=== PATIENT | female | born 1990 | race Two or more races ===

== ENCOUNTER 2017-01-02 18:39 | Inpatient (IN) | payer OTHER ==
[~2017-01-02] VITALS: Ht 162.6 cm; Wt 78.0 kg
[~2017-01-02 18:39] MED LIST: DOCU-27 PO; Hydrocodone Bit/Acetaminophen PO; PNV1TABL4 PO
[2017-01-02] MEDS ORDERED: OXYTOCIN 30 UNIT/500 ML PREMIX 500 ML IV PRN (18:45)
[2017-01-02] MEDS ORDERED: LIDOCAINE 1% PF 30 ML VIAL. INJ PRN (18:45)
[2017-01-02] MEDS ORDERED: BUTORPHANOL 2 MG/ML VIAL. IV PRN (18:45)
[2017-01-02] MEDS ORDERED: TERBUTALINE 1 MG/ML VIAL. SQ PRN (18:45)
[2017-01-02] MEDS ORDERED: fentaNYL PF VIAL 100 MCG/2 ML VIAL IV PRN (18:45)
[2017-01-02] MEDS ORDERED: 0.9 % SODIUM CHLORIDE 10 ML DISP.SYRIN. IV PRN (18:45)
[2017-01-02] MEDS ORDERED: IBUPROFEN 600 MG TABLET. PO PRN (18:45)
[2017-01-02] MEDS ORDERED: DINOPROSTONE 10 MG SUPP.VAG VG ONE (19:15)
[2017-01-02] MEDS: IV RINGERS,LACTATED 1000ML 1,000 ML IV SCH (19:44)
[2017-01-02 19:50] LABS: HEMATOCRIT 38.9 % (36.0-47.0); RED BLOOD COUNT 4.38 x10^6/uL (3.50-5.40); RED CELL DISTRIBUTION WIDTH 14.3 % (11.5-14.5); WHITE BLOOD COUNT 10.9 x10^3/uL (4.0-11.0)
[2017-01-02 20:36] VITALS: BP 118/58
[2017-01-03] VITALS (7 sets, daily range): BP systolic 98–111; BP diastolic 43–58
[2017-01-03] MEDS ORDERED: OXYTOCIN 30 UNIT/500 ML PREMIX 500 ML IV PRN ×2 (06:00→10:15)
[2017-01-03] MEDS: IV RINGERS,LACTATED 1000ML 1,000 ML IV SCH ×2 (08:30→11:30)
--- NOTE | 2017-01-03 10:12 | PDOC ---
VAGINAL DELIVERY DATE DATE: 01/03/17 TIME: 10:11 : 4 Para: 4 EGA: 39 VAGINAL DELIVERY: VTX VACCUM ASSISTED: No PLACENTA: Spontaneous 8/9 SEX: Male WEIGHT Weight [3940 gm ] Nuchal Cord: No Amniotic Fluid: Clear PAIN: Natural EPISIOTOMY: No EXTENSION: No EBL 300 ml COMPLICATIONS none CONDITION pt. stable Signs of Intrauterine Infectio: None Shoulder Dystocia: No Problems: MCKENZIE RASMUSSEN Jr, MD January 03, 2017 10:12
[2017-01-03] MEDS ORDERED: OXYCODONE/APAP 5/325 TABLET. PO PRN (10:15)
[2017-01-03] MEDS ORDERED: MMR per PROTOCOL. MC PRN (10:15)
[2017-01-03] MEDS ORDERED: DOCUSATE SODIUM 100 MG CAPSULE. PO PRN (10:15)
[2017-01-03] MEDS ORDERED: SIMETHICONE 80 MG TAB.CHEW PO PRN (10:15)
[2017-01-03] MEDS ORDERED: BENZOCAINE 20% TOPICAL AEROSOL SPRAY 57GM CAN. TP PRN (10:15)
[2017-01-03] MEDS ORDERED: ACETAMINOPHEN 325 MG TABLET. PO PRN (10:15)
[2017-01-03] MEDS ORDERED: diphenhydrAMINE HCL 25 MG CAPSULE PO PRN (10:15)
[2017-01-03] MEDS ORDERED: HYDROCORTISONE 1% TOPICAL OINTMENT 30GM TUBE. TP PRN (10:15)
[2017-01-03] MEDS ORDERED: MAGNESIUM HYDROXIDE 2,400 MG/30 ML ORAL.SUSP. PO PRN (10:15)
[2017-01-03] MEDS ORDERED: ZOLPIDEM 5 MG TABLET. PO PRN (10:15)
[2017-01-03] MEDS ORDERED: PHENYLEPH/MINERAL OIL/PETROLAT RECTAL OINTMENT 28GM TUBE. RC PRN (10:15)
[2017-01-03] MEDS ORDERED: MAG HYDROX/ALUMINUM HYD/SIMETH 30 ML ORAL.SUSP PO PRN (10:15)
[2017-01-03] MEDS ORDERED: 0.9 % SODIUM CHLORIDE 10 ML DISP.SYRIN. IV PRN (10:15)
[2017-01-03] MEDS: IBUPROFEN 800 MG TABLET. PO PRN ×2 (11:23→21:05)
[2017-01-03] MEDS ORDERED: FERROUS SULFATE 325 MG TABLET. PO SCH (17:00)
[2017-01-04 04:20] VITALS: BP 102/53
[2017-01-04 04:36] LABS: BASO % 0 % (0-3); EOS % 2 % (0-3); HEMATOCRIT 34.7 % (36.0-47.0); HEMOGLOBIN 11.8 g/dL (12.0-15.5); LYMPH % 28 % (24-48); MEAN CORPUSCULAR HEMOGLOBIN 31 pg (25-35); MEAN CORPUSCULAR HGB CONC 34 g/dL (31-37); MEAN CORPUSCULAR VOLUME 91 fL (79-100); MONO % 9 % (0-9); NEUT % 61 % (31-73); PLATELET COUNT 133 x10^3/uL (140-400); RED BLOOD COUNT 3.83 x10^6/uL (3.50-5.40); RED CELL DISTRIBUTION WIDTH 14.3 % (11.5-14.5); WHITE BLOOD COUNT 10.9 x10^3/uL (4.0-11.0)
[2017-01-04] MEDS: IBUPROFEN 800 MG TABLET. PO PRN ×2 (04:49→23:39)
[2017-01-04 08:28] LABS: RPR REFLEX Non Reactive (Non Reactive)
[2017-01-04] MEDS ORDERED: DIPHTH,PERTUSS(ACELL),TET TOX 0.5 ML DISP.SYRIN. VAX IM ONE (09:00)
[2017-01-04 09:09] VITALS: BP 102/63
[2017-01-04 15:45] VITALS: BP 137/73
--- NOTE | 2017-01-04 17:09 | PDOC ---
OB Progress Note Date of Service 01/04/17 Time of Evaluation 1705 Notes Pt. feeling well. Pain controlled. Pt. desires BTL. Lab Laboratory Tests Test 01/02/17 19:20 01/04/17 03:00 White Blood Count 10.9x10^3/uL (4.0-11.0) 10.9x10^3/uL (4.0-11.0) Red Blood Count 4.38x10^6/uL (3.50-5.40) 3.83x10^6/uL (3.50-5.40) Hemoglobin 13.0g/dL (12.0-15.5) 11.8g/dL (12.0-15.5) Hematocrit 38.9% (36.0-47.0) 34.7% (36.0-47.0) Mean Corpuscular Volume 89fL (79-100) 91fL (79-100) Mean Corpuscular Hemoglobin 30pg (25-35) 31pg (25-35) Mean Corpuscular Hemoglobin Concent 34g/dL (31-37) 34g/dL (31-37) Red Cell Distribution Width 14.3% (11.5-14.5) 14.3% (11.5-14.5) Platelet Count 155x10^3/uL (140-400) 133x10^3/uL (140-400) RPR Titer Additional Testing Non reactive (Non Reactive) Neutrophils (%) (Auto) 61% (31-73) Lymphocytes (%) (Auto) 28% (24-48) Monocytes (%) (Auto) 9% (0-9) Eosinophils (%) (Auto) 2% (0-3) Basophils (%) (Auto) 0% (0-3) Neutrophils # (Auto) 6.6x10^3uL (1.8-7.7) Lymphocytes # (Auto) 3.0x10^3/uL (1.0-4.8) Monocytes # (Auto) 1.0x10^3/uL (0.0-1.1) Eosinophils # (Auto) 0.2x10^3/uL (0.0-0.7) Basophils # (Auto) 0.0x10^3/uL (0.0-0.2) Laboratory Tests Test 01/04/17 03:00 White Blood Count 10.9x10^3/uL (4.0-11.0) Red Blood Count 3.83x10^6/uL (3.50-5.40) Hemoglobin 11.8g/dL (12.0-15.5) Hematocrit 34.7% (36.0-47.0) Mean Corpuscular Volume 91fL (79-100) Mean Corpuscular Hemoglobin 31pg (25-35) Mean Corpuscular Hemoglobin Concent 34g/dL (31-37) Red Cell Distribution Width 14.3% (11.5-14.5) Platelet Count 133x10^3/uL (140-400) Neutrophils (%) (Auto) 61% (31-73) Lymphocytes (%) (Auto) 28% (24-48) Monocytes (%) (Auto) 9% (0-9) Eosinophils (%) (Auto) 2% (0-3) Basophils (%) (Auto) 0% (0-3) Neutrophils # (Auto) 6.6x10^3uL (1.8-7.7) Lymphocytes # (Auto) 3.0x10^3/uL (1.0-4.8) Monocytes # (Auto) 1.0x10^3/uL (0.0-1.1) Eosinophils # (Auto) 0.2x10^3/uL (0.0-0.7) Basophils # (Auto) 0.0x10^3/uL (0.0-0.2) Medications Current Medications Sodium Chloride 3 ml 3 ml QSHIFT PRN IV AFTER MEDS AND BLOOD DRAWS; Start at 18:45; Stop 01/04/17 at 09:15; Status DC Lactated Ringer's (Iv Lactated Ringers) 1,000 ml @ 125 mls/hr Q8H IV Last administered on 01/03/17 08:30; Start 01/02/17 at 19:30; Stop 01/03/17 at 23:16; Status DC Butorphanol Tartrate (Stadol) 2 mg PRN Q1HR PRN IV Severe labor pain Last administered on 01/03/17 09:21; Start 01/02/17 at 18:45; Stop 01/04/17 at 09:15; Status DC Fentanyl Citrate (Fentanyl 2ml Vial) 100 mcg PRN Q30MIN PRN IV Severe pain Last administered on 01/03/17 08:30; Start 01/02/17 at 18:45; Stop 01/04/17 at 09: 15; Status DC Terbutaline Sulfate (Brethine) 0.25 mg 1X PRN PRN SQ SEE COMMENTS; Start at 18:45; Stop 01/03/17 at 18:44; Status DC Lidocaine HCl 30 ml 30 ml 1X PRN PRN INJ SEE COMMENTS; Start 01/02/17 at 18:45; Stop 01/04/17 at 09:15; Status DC Oxytocin/Sodium Chloride 500 ml @ 0 mls/hr CONT PRN IV SEE I/O RECORD Last administered on 01/03/17 07:34; Start 01/03/17 at 06:00; Stop 01/04/17 at 09:16; Status DC Oxytocin/Sodium Chloride (Oxytocin Premix Infusion) 500 ml @ 0 mls/hr CONT PRN PRN IV Post delivery bleeding; Start 01/02/17 at 18:45 Ibuprofen (Motrin) 600 mg PRN Q6HRS PRN PO PAIN; Start 01/02/17 at 18:45; Stop 01/04/17 at 09:16; Status DC Dinoprostone (Cervidil) 10 mg 1X ONCE VG Last administered on 01/02/17 19:44; Start 01/02/17 at 19:15; Stop 01/02/17 at 19:16; Status DC Sodium Chloride 10 ml 10 ml QSHIFT PRN IV AFTER MEDS AND BLOOD DRAWS; Start 01/03/17 at 10:15 Oxytocin/Sodium Chloride (Oxytocin Premix Infusion) 500 ml @ 62.5 mls/hr CONT PRN IV SEE I/O RECORD; Start 01/03/17 at 10:15; Stop 01/03/17 at 18:14; Status DC Acetaminophen (Tylenol) 650 mg PRN Q6HRS PRN PO MILD PAIN / TEMP; Start at 10:15 Ibuprofen (Motrin) 800 mg PRN Q8HRS PRN PO INFLAMMATION/PAIN PREVENTION Last administered on 01/04/17 04:49; Start 01/03/17 at 10:15 Docusate Sodium (Colace) 100 mg PRN BID PRN PO CONSTIPATION; Start 01/03/17 at 10:15 Magnesium Hydroxide (Milk Of Magnesia) 2,400 mg PRN DAILY PRN PO CONSTIPATION; Start 01/03/17 at 10:15 Al Hydroxide/Mg Hydroxide (Mylanta Plus Xs) 30 ml PRN Q4HRS PRN PO HEARTBURN / GAS; Start 01/03/17 at 10:15 Simethicone (Gas-X) 80 mg PRN AFTMEALHC PRN PO GAS / BLOATING; Start 01/03/17 at 10:15 Diphenhydramine HCl (Benadryl) 25 mg PRN Q6HRS PRN PO ITCHING; Start 01/03/17 at 10:15 Benzocaine (Americaine) 1 spray PRN QID PRN TP TOPICAL PAIN; Start 01/03/17 at 10:15 Phenyleph/Shark Oil/Min Oil/Petrol (Preparation H) 1 geraldo PRN QID PRN RC RECTAL PAIN; Start 01/03/17 at 10:15 Hydrocortisone (Cortaid) 1 geraldo PRN QID PRN TP PERINEAL PAIN; Start 01/03/17 at 10:15 Ferrous Sulfate (Feosol) 325 mg BIDWMEALS PO Last administered on 01/03/17t 16: 55; Start 01/03/17 at 17:00; Stop 01/04/17 at 09:15; Status DC Zolpidem Tartrate (Ambien) 5 mg PRN QHS PRN PO INSOMNIA, MAY REPEAT X1; Start 01/03/17 at 10:15 Info (Do NOT chart on this placeholder) 1 ea 1X PRN PRN MC SEE COMMENTS; Start 01/03/17 at 10:15 Info (Do NOT chart on this placeholder) 1 ea 1X PRN PRN MC SEE COMMENTS; Start 01/03/17 at 10:15; Stop 01/04/17 at 09:15; Status DC Oxycodone/ Acetaminophen (Percocet 5/325) 2 tab PRN Q4HRS PRN PO MODERATE PAIN , SEVERE PAIN; Start 01/03/17 at 10:15 Diphtheria/ Tetanus/Acell Pertussis (Boostrix) 0.5 ml ONCE ONCE VAX IM ; Start 01/04/17 at 09:00; Stop 01/04/17 at 09:01; Status DC Ondansetron HCl (Zofran) 4 mg PRN Q6HRS PRN IV NAUSEA/VOMITING; Start 01/05/17 at 07:00; Stop 01/06/17 at 06:59 Fentanyl Citrate (Fentanyl 2ml Vial) 25 mcg PRN Q5MIN PRN IV MILD PAIN; Start 01/05/17 at 07:00; Stop 01/06/17 at 06:59 Fentanyl Citrate (Fentanyl 2ml Vial) 50 mcg PRN Q5MIN PRN IV MODERATE PAIN; Start 01/05/17 at 07:00; Stop 01/06/17 at 06:59 Morphine Sulfate 1 mg PRN Q10MIN PRN IV SEVERE PAIN; Start 01/05/17 at 07:00; Stop 01/06/17 at 06:59 Lidocaine HCl 2 ml PRN 1X PRN ID PRIOR TO IV START; Start 01/05/17 at 07:00; Stop 01/06/17 at 06:59 Hydromorphone HCl (Dilaudid) 0.5 mg PRN Q10MIN PRN IV SEV PAIN, Second choice; Start 01/05/17 at 07:00; Stop 01/06/17 at 06:59 Prochlorperazine Edisylate (Compazine) 5 mg PACU PRN PRN IV NAUSEA, MRX1; Start 01/05/17 at 07:00; Stop 01/06/17 at 06:59 Active Scripts Active Reported Multivitamins Tablet (Pnv Cmb#95/Ferrous Fumarate/Fa) Unknown Strength Tablet Unknown Dose PO Exam Abd: soft, non tender, fundus firm Assessment PPD#1 s/p Plan of Care: Continue current Tx, Mgmt (NPO after midnight. Plan for PP BTL tomorrow.) MCKENZIE RASMUSSEN Jr, MD January 04, 2017 17:09
[2017-01-04 18:20] VITALS: BP 104/52
[2017-01-04 21:20] VITALS: BP 106/58
[2017-01-05] MEDS ORDERED: ONDANSETRON PF 4 MG/2 ML VIAL. IV PRN (07:00)
[2017-01-05] MEDS ORDERED: MORPHINE SULFATE 2 MG/ML DISP.SYRIN. IV PRN (07:00)
[2017-01-05] MEDS ORDERED: IV RINGERS,LACTATED 1000ML 1,000 ML IV SCH (07:00)
[2017-01-05] MEDS ORDERED: LIDOCAINE 1% 1 ML SYRINGE. ID PRN (07:00)
[2017-01-05] MEDS ORDERED: PROCHLORPERAZINE 10 MG/2 ML VIAL. IV PRN (07:00)
[2017-01-05] MEDS ORDERED: fentaNYL PF VIAL 100 MCG/2 ML VIAL IV PRN (07:00)
[2017-01-05] MEDS ORDERED: BUPIVAC MPF-EPI 0.5%-1:200000 30 ML VIAL. ONE (07:07)
[2017-01-05 08:00] VITALS: BP 109/77
[2017-01-05 11:45] VITALS: BP 109/74
[2017-01-05] MEDS ORDERED: MIDAZOLAM HCL/PF 2 MG/2 ML VIAL. ONE (12:16)
[2017-01-05] MEDS ORDERED: SUCCINYLCHOLINE 200 MG/10 ML VIAL. ONE (12:16)
[2017-01-05] MEDS ORDERED: PROPOFOL 20 ML IV ONE (12:16)
[2017-01-05] MEDS ORDERED: SEVOFLURANE 31 TO 60 MINUTES. IH ONE (12:16)
[2017-01-05] MEDS ORDERED: fentaNYL PF VIAL 100 MCG/2 ML VIAL ONE (12:16)
[2017-01-05] MEDS ORDERED: ONDANSETRON PF 4 MG/2 ML VIAL. ONE (12:17)
[2017-01-05] MEDS ORDERED: DEXAMETHASONE SOD PHOS 20 MG/5 ML VIAL. ONE (12:17)
[2017-01-05] MEDS ORDERED: LIDOCAINE 2% 100 MG/5 ML SYRINGE. ONE (12:17)
[2017-01-05] MEDS ORDERED: LIDOCAINE 1%/EPI 1:100,000 20 ML VIAL. ONE (12:55)
--- NOTE | 2017-01-05 13:37 | PDOC ---
BRIEF OPERATIVE NOTE Pre-Op Diagnosis Sterilization Post-Op Diagnosis Same Procedure Performed PP BTL Surgeon Dr. Daley Anesthesia Type: General Blood Loss Less than 10 ml Specimens Obtained none Findings enlarged, post uterus; nml fallopian tubes maylin. Complications none Additional Remarks ptMCKENZIE Manriquez Jr, MD January 05, 2017 13:37
[2017-01-05] MEDS: fentaNYL PF VIAL 100 MCG/2 ML VIAL IV PRN ×4 (13:45→14:30)
[2017-01-05] MEDS: HYDROmorphone 2 MG/ML VIAL IV PRN ×2 (13:55→14:06)
[2017-01-05 15:15] VITALS: BP 99/57
[2017-01-05 15:30] VITALS: BP 101/52
--- NOTE | 2017-01-05 15:39 | OP ---
DATE OF SURGERY: 01/05/2017 PREOPERATIVE DIAGNOSIS: Sterilization. POSTOPERATIVE DIAGNOSIS: Sterilization. PROCEDURE: BTL with Filshie clips. SURGEON: Tucker Daley MD. ANESTHESIA: GETA. ESTIMATED BLOOD LOSS: Less than 10 mL. COMPLICATIONS: None. FINDINGS: Enlarged uterus, normal fallopian tubes bilaterally. SUMMARY: A 26-year-old, 4, para 4, desires permanent sterilization. She was counseled on risks, benefits, and expectations as well as the failure rate and voiced a clear understanding to proceed. DESCRIPTION OF PROCEDURE: The patient was taken to surgery suite and placed in dorsal supine position. She was prepped with ChloraPrep and draped in sterile fashion. After adequate anesthesia, 2 Allis clamps were placed just below the umbilicus about 3 cm apart. A 0.25% Marcaine with epinephrine was injected in a horizontal fashion between the 2 Allis clamps. A transverse skin incision was made between the 2 Allis clamps with the scalpel. The fascia was grasped with two Allis clamps at 12 o'clock and 6 o'clock position and was entered sharply with curved Metzenbaum scissors. The peritoneum was entered sharply with Metzenbaum scissors as well. Army-[place] retractors were placed. The left fallopian tube was identified and grasped with Babcocks and followed out to its fimbriated end. Filshie clip was placed in the isthmus region of the left fallopian tube totally occluding the fallopian tube. Same process took place at the right adnexa. The fascia was reapproximated using 2-0 Vicryl suture in a running fashion. The skin was reapproximated using 4-0 Vicryl suture in subcuticular manner. The patient tolerated the procedure well and was taken to Recovery Room in stable condition. Sponge and needle counts were correct x 3. TUCKER DALEY MD DR: OBI/beni JOB#: [id number] / [id number]
[2017-01-05 16:00] VITALS: BP 97/54
--- NOTE | 2017-01-05 17:44 | PDOC ---
OB Progress Note Date of Service 01/05/17 Time of Evaluation 1745 Notes PT. feeling well. No complaints. Lab Laboratory Tests Test 01/04/17 03:00 White Blood Count 10.9 x10^3/uL (4.0-11.0) Red Blood Count 3.83 x10^6/uL (3.50-5.40) Hemoglobin 11.8 g/dL (12.0-15.5) Hematocrit 34.7 % (36.0-47.0) Mean Corpuscular Volume 91 fL (79-100) Mean Corpuscular Hemoglobin 31 pg (25-35) Mean Corpuscular Hemoglobin Concent 34 g/dL (31-37) Red Cell Distribution Width 14.3 % (11.5-14.5) Platelet Count 133 x10^3/uL (140-400) Neutrophils (%) (Auto) 61 % (31-73) Lymphocytes (%) (Auto) 28 % (24-48) Monocytes (%) (Auto) 9 % (0-9) Eosinophils (%) (Auto) 2 % (0-3) Basophils (%) (Auto) 0 % (0-3) Neutrophils # (Auto) 6.6 x10^3uL (1.8-7.7) Lymphocytes # (Auto) 3.0 x10^3/uL (1.0-4.8) Monocytes # (Auto) 1.0 x10^3/uL (0.0-1.1) Eosinophils # (Auto) 0.2 x10^3/uL (0.0-0.7) Basophils # (Auto) 0.0 x10^3/uL (0.0-0.2) Medications Current Medications Sodium Chloride (Normal Saline Flush) 3 ml QSHIFT PRN IV AFTER MEDS AND BLOOD DRAWS; Start 01/02/17 at 18:45; Stop 01/04/17 at 09:15; Status DC Lactated Ringer's 1,000 ml @ 125 mls/hr Q8H IV Last administered on 01/03/17 08:30; Start 01/02/17 at 19:30; Stop 01/03/17 at 23:16; Status DC Butorphanol Tartrate (Stadol) 2 mg PRN Q1HR PRN IV Severe labor pain Last administered on 01/03/17 09:21; Start 01/02/17 at 18:45; Stop 01/04/17 at 09:15; Status DC Fentanyl Citrate (Fentanyl 2ml Vial) 100 mcg PRN Q30MIN PRN IV Severe pain Last administered on 01/03/17 08:30; Start 01/02/17 at 18:45; Stop 01/04/17 at 09: 15; Status DC Terbutaline Sulfate (Brethine) 0.25 mg 1X PRN PRN SQ SEE COMMENTS; Start at 18:45; Stop 01/03/17 at 18:44; Status DC Lidocaine HCl 30 ml 1X PRN PRN INJ SEE COMMENTS; Start 01/02/17 at 18:45; Stop 01/04/17 at 09:15; Status DC Oxytocin/Sodium Chloride 500 ml @ 0 mls/hr CONT PRN IV SEE I/O RECORD Last administered on 01/03/17 07:34; Start 01/03/17 at 06:00; Stop 01/04/17 at 09:16; Status DC Oxytocin/Sodium Chloride 500 ml @ 0 mls/hr CONT PRN PRN IV Post delivery bleeding; Start 01/02/17 at 18:45 Ibuprofen (Motrin) 600 mg PRN Q6HRS PRN PO PAIN; Start 01/02/17 at 18:45; Stop 01/04/17 at 09:16; Status DC Dinoprostone (Cervidil) 10 mg 1X ONCE VG Last administered on 01/02/17 19:44; Start 01/02/17 at 19:15; Stop 01/02/17 at 19:16; Status DC Sodium Chloride (Normal Saline Flush) 10 ml QSHIFT PRN IV AFTER MEDS AND BLOOD DRAWS Last administered on 01/04/17 14:00; Start 01/03/17 at 10:15 Oxytocin/Sodium Chloride 500 ml @ 62.5 mls/hr CONT PRN IV SEE I/O RECORD; Start 01/03/17 at 10:15; Stop 01/03/17 at 18:14; Status DC Acetaminophen (Tylenol) 650 mg PRN Q6HRS PRN PO MILD PAIN / TEMP; Start at 10:15 Ibuprofen (Motrin) 800 mg PRN Q8HRS PRN PO INFLAMMATION/PAIN PREVENTION Last administered on 5/3/17at 23:39; Start 01/03/17 at 10:15 Docusate Sodium (Colace) 100 mg PRN BID PRN PO CONSTIPATION; Start 01/03/17 at 10:15 Magnesium Hydroxide (Milk Of Magnesia) 2,400 mg PRN DAILY PRN PO CONSTIPATION; Start 01/03/17 at 10:15 Al Hydroxide/Mg Hydroxide (Mylanta Plus Xs) 30 ml PRN Q4HRS PRN PO HEARTBURN / GAS; Start 01/03/17 at 10:15 Simethicone (Gas-X) 80 mg PRN AFTMEALHC PRN PO GAS / BLOATING; Start 01/03/17 at 10:15 Diphenhydramine HCl (Benadryl) 25 mg PRN Q6HRS PRN PO ITCHING; Start 01/03/17 at 10:15 Benzocaine (Americaine) 1 spray PRN QID PRN TP TOPICAL PAIN; Start 01/03/17 at 10:15 Phenyleph/Shark Oil/Min Oil/Petrol (Preparation H) 1 geraldo PRN QID PRN RC RECTAL PAIN; Start 01/03/17 at 10:15 Hydrocortisone (Cortaid) 1 geraldo PRN QID PRN TP PERINEAL PAIN; Start 01/03/17 at 10:15 Ferrous Sulfate (Feosol) 325 mg BIDWMEALS PO Last administered on 01/03/17 16: 55; Start 01/03/17 at 17:00; Stop 01/04/17 at 09:15; Status DC Zolpidem Tartrate (Ambien) 5 mg PRN QHS PRN PO INSOMNIA, MAY REPEAT X1; Start 01/03/17 at 10:15 Info (Do NOT chart on this placeholder) 1 ea 1X PRN PRN MC SEE COMMENTS; Start 01/03/17 at 10:15 Info (Do NOT chart on this placeholder) 1 ea 1X PRN PRN MC SEE COMMENTS; Start 01/03/17 at 10:15; Stop 01/04/17 at 09:15; Status DC Oxycodone/ Acetaminophen (Percocet 5/325) 2 tab PRN Q4HRS PRN PO MODERATE PAIN , SEVERE PAIN; Start 01/03/17 at 10:15 Diphtheria/ Tetanus/Acell Pertussis (Boostrix) 0.5 ml ONCE ONCE VAX IM ; Start 01/04/17 at 09:00; Stop 01/04/17 at 09:01; Status DC Ondansetron HCl (Zofran) 4 mg PRN Q6HRS PRN IV NAUSEA/VOMITING; Start 01/05/17 at 07:00; Stop 01/06/17 at 06:59 Fentanyl Citrate (Fentanyl 2ml Vial) 25 mcg PRN Q5MIN PRN IV MILD PAIN; Start 01/05/17 at 07:00; Stop 01/06/17 at 06:59 Fentanyl Citrate (Fentanyl 2ml Vial) 50 mcg PRN Q5MIN PRN IV MODERATE PAIN Last administered on 01/05/17 14:30; Start 01/05/17 at 07:00; Stop 01/06/17 at 06: 59 Morphine Sulfate 1 mg PRN Q10MIN PRN IV SEVERE PAIN; Start 01/05/17 at 07:00; Stop 01/06/17 at 06:59 Lidocaine HCl 2 ml PRN 1X PRN ID PRIOR TO IV START; Start 01/05/17 at 07:00; Stop 01/06/17 at 06:59 Hydromorphone HCl (Dilaudid) 0.5 mg PRN Q10MIN PRN IV SEV PAIN, Second choice Last administered on 01/05/17 14:06; Start 01/05/17 at 07:00; Stop 01/06/17 at 06: 59 Prochlorperazine Edisylate (Compazine) 5 mg PACU PRN PRN IV NAUSEA, MRX1; Start 01/05/17 at 07:00; Stop 01/06/17 at 06:59 Bupivacaine HCl/ Epinephrine Bitart (Sensorcain-Mpf Epi 0.5%-1:224149) 30 ml STK -MED ONCE .ROUTE ; Start 01/05/17 at 07:07; Stop 01/05/17 at 07:08; Status DC Sevoflurane (Ultane) 30 ml STK-MED ONCE IH ; Start 01/05/17 at 12:16; Stop at 12:17; Status DC Midazolam HCl (Versed) 2 mg STK-MED ONCE .ROUTE ; Start 01/05/17 at 12:16; Stop 01/05/17 at 12:17; Status DC Fentanyl Citrate (Fentanyl 2ml Vial) 100 mcg STK-MED ONCE .ROUTE ; Start at 12:16; Stop 01/05/17 at 12:17; Status DC Succinylcholine Chloride (Anectine) 200 mg STK-MED ONCE .ROUTE ; Start 01/05/17 at 12:16; Stop 01/05/17 at 12:17; Status DC Propofol 20 ml @ As Directed STK-MED ONCE IV ; Start 01/05/17 at 12:16; Stop 01/05 at 12:17; Status DC Dexamethasone Sodium Phosphate (Decadron) 20 mg STK-MED ONCE .ROUTE ; Start 01/05 at 12:17; Stop 01/05/17 at 12:18; Status DC Ondansetron HCl (Zofran) 4 mg STK-MED ONCE .ROUTE ; Start 01/05/17 at 12:17; Stop 01/05/17 at 12:18; Status DC Lidocaine HCl (Lidocaine HCl 2% Abboject) 100 mg STK-MED ONCE .ROUTE ; Start 01/05/17 at 12:17; Stop 01/05/17 at 12:18; Status DC Lidocaine/ Epinephrine (Xylocaine 1%-Epi 1:100,000) 20 ml STK-MED ONCE .ROUTE Last administered on 01/05/17t 13:44; Start 01/05/17 at 12:55; Stop 01/05/17 at 12: 56; Status DC Active Scripts Active Reported Multivitamins Tablet (Pnv Cmb#95/Ferrous Fumarate/Fa) Unknown Strength Tablet Unknown Dose PO Exam ABd: soft, non tender INcision site: clean and intact. Assessment PPD#2 s/p and POD#0 s/p PP BTL Plan of Care: See new orders (D/c home.) MCKENZIE RASMUSSEN Jr, MD January 05, 2017 17:44
--- NOTE | 2017-01-05 17:45 | DISCH ---
DISCHARGE INSTRUCTIONS Condition on Discharge Condition on Discharge: Stable Activity After Discharge Activity Instructions for Disc: Activity as tolerated Lifting Instructions after Dis: No heavy lifting Driving Instructions after Dis: Do not drive today Diet after Discharge Diet after Discharge: Regular Contacting the DRBrian after DC Call your doctor for: Concerns you may have Follow-Up Follow up with: Dr. Soliz in 2 weeks. MCKENZIE RASMUSSEN Jr, MD January 05, 2017 17:45
[2017-01-05] MEDS ORDERED: HYDR-971 PO (17:46)
[2017-01-05] MEDS ORDERED: NAPR500T PO (17:46)
== END 2017-01-05 19:07 | disposition home or self-care (01) | DRG 767 ==
LOC: 3 SO LND 18:39
PROVIDERS: ADMIT Specialist; ATTEND Specialist
PROC: 10E0XZZ Delivery of Products of Conception, External Approach (ICD-10-PCS; principal; 2017-01-03)
PROC: 0UL60CZ Occlusion of Left Fallopian Tube with Extraluminal Device, Open Approach (ICD-10-PCS; 2017-01-05)
DX: O80 Encounter for full-term uncomplicated delivery (principal); Z37.0 Single live birth; Z30.2 Encounter for sterilization; Z3A.39 39 weeks gestation of pregnancy
CPT/HCPCS: 36415; 85027; 86593; 86850; 86900; 86901; J0330; J1100; J1170; J2250; J2405; J2590; J2704; J3010; J3490; J7120

== ENCOUNTER 2018-12-10 13:54 | Emergency (ER) | payer SELFPAY ==
[~2018-12-10] VITALS: Ht 162.6 cm; Wt 72.6 kg
[~2018-12-10 13:54] MED LIST changes: +DOCU-109 PO; -DOCU-27 PO; +HYDR-3164 PO; +NAPR-683 PO
[2018-12-10 14:00] VITALS: BP 116/56
--- NOTE | 2018-12-10 14:30 | PHYS DOC ---
Past Medical History Past Medical History: No Pertinent History Past Surgical History: Appendectomy, Hysterectomy Alcohol Use: None Drug Use: None Adult General Chief Complaint Chief Complaint: LOWER BACK PAIN OR INJURY HPI HPI Patient is a 28 year old female presents to the ED complaining of right-sided back/rib pain times one day ago. Patient states she was cleaning her house and she lifted the treadmill up and when she turned around the treadmill fell onto her back. Complains of pain to right-sided rib/back. Describes the pain as sharp. Rates the pain as 5 out of 10. Denies head/neck injury, LOC, vision changes, nausea/vomiting or dizziness, weakness, chest pain or shortness of breath. Review of Systems Review of Systems Constitutional: Denies fever or chills [] Eyes: Denies change in visual acuity, redness, or eye pain [] HENT: Denies nasal congestion or sore throat [] Respiratory: Denies cough or shortness of breath [] Cardiovascular: No additional information not addressed in HPI [] GI: Denies abdominal pain, nausea, vomiting, bloody stools or diarrhea [] : Denies dysuria or hematuria [] Musculoskeletal: Complains of right sided rib and back pain. [] Integument: Denies rash or skin lesions [] Neurologic: Denies headache, focal weakness or sensory changes [] All other systems were reviewed and found to be within normal limits, except as documented in this note. Allergies Allergies Allergies Coded Allergies Type Severity Reaction Last Updated Verified No Known Drug Allergies 01/05/17 No Physical Exam Physical Exam Constitutional: Well developed, well nourished, no acute distress, non-toxic appearance. [] HENT: Normocephalic, atraumatic. Eyes: PERRLA, EOMI, conjunctiva normal, no discharge. [] Neck: Normal range of motion, no tenderness, supple, no stridor. [] Cardiovascular:Heart rate regular rhythm, no murmur [] Lungs & Thorax: Bilateral breath sounds clear to auscultation. Mild right posterior rib tenderness. Pain with lateral ROM. No overlying skin changes.[] Abdomen: Bowel sounds normal, soft, no tenderness, no masses, no pulsatile masses. [] Skin: Warm, dry, no erythema, no rash. [] Back: No tenderness, no CVA tenderness. [] Extremities: No tenderness, no cyanosis, no clubbing, ROM intact, no edema. [] Neurologic: Alert and oriented X 3, normal motor function, normal sensory function, no focal deficits noted. [] Psychologic: Affect normal, judgement normal, mood normal. [] Current Patient Data Vital Signs Vital Signs Date Time Temp Pulse Resp B/P (MAP) Pulse Ox O2 Delivery O2 Flow Rate FiO2 12/10/18 14:00 98.0 73 16 116/56 (76) 100 Room Air 98.0 EKG EKG [] Radiology/Procedures Radiology/Procedures PROCEDURE: RIBS RIGHT AND PA CHEST RIBS RIGHT AND PA CHEST History: Fall on treadmill, injury to the right lower ribs, right rib pain Comparison: None. Findings: Single view of the chest and 2 additional views of the right ribs are submitted. There is no infiltrate, pleural fluid, pneumothorax. Heart size is within normal limits. No displaced right rib fracture is identified by radiographs. Impression: 1. No acute radiographic abnormality is identified.[] Course & Med Decision Making Course & Med Decision Making Pertinent Labs and Imaging studies reviewed. (See chart for details) []Discussed imaging findings with patient. Patient's pain improved in the ED. Discussed symptomatic treatment and follow-up if symptoms persist. Provided contact information/education. Discussed reasons to return to the ED. Patient understands and agrees with plan. Dragon Disclaimer Dragon Disclaimer This electronic medical record was generated, in whole or in part, using a voice recognition dictation system. Departure Departure Impression: Primary Impression: Rib pain Disposition: HOME, SELF-CARE Condition: IMPROVED Referrals: MAMIE MICHAELS MD (PCP) Patient Instructions: Rib Contusion Scripts Cyclobenzaprine Hcl (CYCLOBENZAPRINE HCL) 5 Mg Tablet 1 TAB PO TID for 5 Days, #15 TAB Prov: DEBRA DIXON 12/10/18 DEBRA DIXON Dec 10, 2018 14:30
--- NOTE | 2018-12-10 14:38 | RAD ---
RIBS RIGHT AND PA CHEST History: Fall on treadmill, injury to the right lower ribs, right rib pain Comparison: None. Findings: Single view of the chest and 2 additional views of the right ribs are submitted. There is no infiltrate, pleural fluid, pneumothorax. Heart size is within normal limits. No displaced right rib fracture is identified by radiographs. Impression: 1. No acute radiographic abnormality is identified. Electronically signed by: Aramis Ramirez MD (12/10/2018 2:36 PM) [place] [id number]
[2018-12-10] MEDS ORDERED: CYCL5TAB PO (14:49)
== END 2018-12-10 15:04 | disposition home or self-care (01) ==
LOC: ER 13:54
DX: R07.81 Pleurodynia (principal); Z90.89 Acquired absence of other organs; Z90.710 Acquired absence of both cervix and uterus
CPT/HCPCS: 71101; 99283

== ENCOUNTER 2019-02-01 14:01 | Emergency (ER) | payer SELFPAY ==
[~2019-02-01] VITALS: Ht 162.6 cm; Wt 82.6 kg
[~2019-02-01 14:01] MED LIST changes: +CYCL5TAB PO
[2019-02-01] MEDS ORDERED: PRED50TA PO (15:21)
[2019-02-01] MEDS ORDERED: DOXY100T9 PO (15:21)
[2019-02-01] MEDS ORDERED: DIPH25CA58 PO (15:21)
--- NOTE | 2019-02-01 15:22 | PHYS DOC ---
Past Medical History Past Medical History: No Pertinent History Past Surgical History: Appendectomy, Hysterectomy Alcohol Use: None Drug Use: None Adult General Chief Complaint Chief Complaint: SKIN RASH/ABSCESS HPI HPI Patient is a 28 year old female with no significant medical history who presents to the ED today complaining of a rash on her face and chest that began 3 days ago. Patient states she has tried using hydrocortisone cream she received from [facility] with no relief. Review of Systems Review of Systems Constitutional: Denies fever or chills [] Musculoskeletal: Denies back pain or joint pain [] Integument: Reports rash Neurologic: Denies headache, focal weakness or sensory changes [] All other systems were reviewed and found to be within normal limits, except as documented in this note. Allergies Allergies Allergies Coded Allergies Type Severity Reaction Last Updated Verified No Known Drug Allergies 01/05/17 No Physical Exam Physical Exam Constitutional: Well developed, well nourished, no acute distress, non-toxic appearance. [] Skin: Face and upper chest with mild amount of erythematous papular rash suspicious of acne. Back: No tenderness, no CVA tenderness. [] Extremities: No tenderness, no cyanosis, no clubbing, ROM intact, no edema. [] Neurologic: Alert and oriented X 3, normal motor function, normal sensory function, no focal deficits noted. [] Psychologic: Affect normal, judgement normal, mood normal. [] Current Patient Data Vital Signs Vital Signs Date Time Temp Pulse Resp B/P (MAP) Pulse Ox O2 Delivery O2 Flow Rate FiO2 02/01/19 14:17 98.5 79 17 113/70 (84) 98 Room Air 98.5 EKG EKG [] Radiology/Procedures Radiology/Procedures [] Course & Med Decision Making Course & Med Decision Making Pertinent Labs and Imaging studies reviewed. (See chart for details) This is a 28-year-old female patient presenting to the ED today with a rash on her face and chest, rash highly suspicious of acne vulgaris. She has tried hydrocortisone cream with no relief. We will send her home with doxycycline, prednisone, and Benadryl. Provided fig bar machine operator for follow-up. Dragon Disclaimer Dragon Disclaimer This electronic medical record was generated, in whole or in part, using a voice recognition dictation system. Departure Departure Impression: Primary Impression: Superficial acne vulgaris Disposition: HOME, SELF-CARE Condition: STABLE Referrals: NO PCP (PCP) MARGOTH JUAREZ MD follow up in 1-2 weeks Patient Instructions: Rash, [id number] Additional Instructions: You evaluated in the emergency room for a rash we put you on medications, take them as prescribed. Follow-up with the provided fig bar machine operator in 2 weeks if symptoms continue. Scripts Diphenhydramine Hcl (BENADRYL) 25 Mg Capsule 1 CAP PO Q6HRS, #30 CAP 1 Refill Prov: JUDIT FORTE APRN 02/01/19 Doxycycline Hyclate (DOXYCYCLINE HYCLATE) 100 Mg Tablet.dr 1 TAB PO BID, #14 TAB Prov: JUDIT FORTE APRN 02/01/19 Prednisone (PREDNISONE) 50 Mg Tablet 1 TAB PO DAILY, #5 TAB Prov: JUDIT FORTE APRN 02/01/19 JUDIT FORTE APRN February 01, 2019 15:22
== END 2019-02-01 15:31 | disposition home or self-care (01) ==
LOC: ER 14:01
DX: L70.0 Acne vulgaris (principal); Z90.89 Acquired absence of other organs; Z90.710 Acquired absence of both cervix and uterus
CPT/HCPCS: 99283